=== PATIENT | female | born 1980 | race Caucasian/White ===

== ENCOUNTER 2017-04-28 00:11 | Inpatient (IN) ==
[2017-04-28] MEDS ORDERED: Piperacillin/Tazobactam 4.5 GM in D5% in Water (Mini-Bag+) 100 ML IVPB ONE (00:28)
[2017-04-28] MEDS ORDERED: Vancomycin 750 MG in D5% in Water 250 ML IVPB ONE (00:28)
[2017-04-28] MEDS: 0.9 % Sodium Chloride 1,000 ML IVC SCH ×4 (00:37→22:41)
[2017-04-28 00:40] LABS: Bilirubin,Urine Small (Negative); Blood,Urine Moderate (Negative); Clarity,Urine Turbid (Clear); Color,Urine Yellow (Yellow); Glucose,Urine (UA) Normal (Normal); Ketones,Urine Trace mg/dL (Negative); Leukocyte Esterase,Urine Large (Negative); Nitrite,Urine Negative (Negative); Protein,Urine >=300 mg/dL (Neg-Trace); Specific Gravity,Urine >= 1.030 (1.010-1.025); Urobilinogen,Urine Normal (Normal)
[2017-04-28 00:40] LABS: Hematocrit 31.5 % (35.3-44.9); Hemoglobin 10.2 g/dL (11.5-15.4); Immature Platelets 1.7 % (1.1-6.1); Mean Corpuscular HGB Conc 32.4 g/dL (31.6-35.5); Mean Corpuscular Hemoglobin 24.6 pg (28.0-33.3); Mean Corpuscular Volume 76.1 fL (83.0-100.0); Mean Platelet Volume 8.9 fL (9.4-12.4); Monocytes # 1.1 K/mcL (0.0-1.3); Platelet Count 296 K/mcL (140-400); Red Blood Count 4.14 M/mcL (3.82-4.97); Red Cell Distribution Width 15.9 % (11.5-14.5)
[2017-04-28 00:43] LABS: RBC,Urine Present per hpf (0-3); WBC,Urine TNTC per hpf (0-3)
[2017-04-28 00:44] LABS: Bacteria,Urine Present per hpf (None-Few); Squamous Epithelial Cell,Urine Present per lpf (None-Few)
--- NOTE | 2017-04-28 00:49 | Emergency Department Note ---
Addendum entered and electronically signed by Braden Chaudhry DO 04/28/17 02:25: EKG shows sinus tach, rate 125, ID interval 109, QRS 76, QTC 359, normal axis, no acute ischemic changes Original Note: Disposition Clinical Impression: Pyelonephritis, KVNG (acute kidney injury), Calculus of kidney Sepsis Qualifiers: Sepsis type: sepsis due to unspecified organism Qualified Code(s): A41.9 - Sepsis, unspecified organism Disposition: Admitted As Inpatient Time of Disposition: 01:19 Abdominal Pain HPI - General Chief Complaint: ED Abdominal Pain Stated Complaint: headache,vomiting,fever,rt flank pain Time Seen by Provider: 04/28/17 00:22 Source: patient Mode of arrival: ambulatory Limitations: no limitations Nursing Notes Reviewed: Yes Vital Signs Reviewed: Yes - History of Present Illness HPI Narrative: Patient presents to the ED ambulatory with the chief complaint of flank pain, nausea and headache. Patient reports she was seen here last week and treated for urinary tract infection, but does not remember what it was. States that she was placed on an antibiotic. Patient cannot remember which one. States she had some right flank pain at that time which has since progressed. States the pain is still worse in her right flank and right abdomen but now she has had subjective fever and chills. States her abdomen feels distended. She has been nauseated but not vomiting. States she just feels weak and tired all over. Has been having a fast heart rate as well. States she has not had dysuria but that her urine has been very cloudy. No previous history of nephrolithiasis. Pain Scale: 6 - Related Data Previous Rx's Medication Instructions Recorded Phenazopyridine [Pyridium] 200 mg PO TID PRN #15 tablet 01/19/16 Sulfamethoxazole/Trimeth DS 1 each PO BID #10 tablet 01/19/16 [Bactrim DS] cephALEXin [Cephalexin] 500 mg PO BID #14 tablet 04/04/17 Allergies Allergy/AdvReac Type Severity Reaction Status Date / Time No Known Allergies Allergy Verified 04/04/17 19:33 All systems ED: reviewed and negative except as stated. Constitutional: Reports: fever, chills, weakness Cardiovascular: Denies: chest pain Gastrointestinal: Reports: abdominal pain, nausea. Denies: vomiting Genitourinary: Reports: as per HPI Musculoskeletal: Reports: back pain Neurological: Reports: headache Abdominal Pain PMH - Past Medical History Medical history: Reports: no medical history Female Surgical History: Reports: hysterectomy CONE PICKER history: Reports: no CONE PICKER history Psychiatric history: Reports: no psych history - Social History Smoking status: Current every day smoker Alcohol use: Reports: none Drug use: Reports: none Physical Exam - General Limitations: no limitations General appearance: alert, in no apparent distress, other (Appears ill) - Head Head exam: atraumatic, normocephalic, normal inspection - Eye Eye exam: Present: normal appearance, PERRL, EOMI - ENT ENT exam: mucous membranes dry - Neck Neck exam: Present: normal inspection, full ROM, trachea midline - Chest Chest inspection: Present: normal inspection, symmetric chest wall rise - Respiratory Respiratory exam: Present: normal lung sounds bilaterally - Cardiovascular Cardiovascular exam: Present: regular rate, normal rhythm, normal heart sounds - Abdominal Exam Abdominal exam: Present: soft, tenderness, distention. Absent: guarding, rebound Abdominal tenderness: Present: diffuse - Extremities Exam Extremities exam: Present: normal inspection, full ROM. Absent: tenderness, pedal edema - Back Exam Back exam: Present: full ROM, CVA tenderness (R) - Neurological Exam Neurological exam: Present: alert, oriented X3 - Psychiatric Psychiatric exam: Present: normal affect, normal mood - Skin Skin exam: Present: warm, dry, intact, normal color Course Course Narrative: Patient presenting febrile, tachycardic, with complaint of flank pain and recent urinary tract infection. Suspecting pyelonephritis. Meet sepsis criteria. Labwork ordered. Antibiotics ordered a fluid bolus ordered and patient will be admitted - Reevaluation(s) Reevaluation #1: Patient got back from CT looked of the CT report shows a large stone on the right. Has significant right-sided hydronephrosis and hydroureter. Some perinephric stranding. We will wait on the official CT reading consult urology. - Consultations Consultation #1: Spoke with Dr. Leger, the on-call urologist. He will be in to stent the patient tonight. Patient's last meal was over 12 hours ago, but she has been drinking fluids. We will make her nothing by mouth this time and admit to the hospitalist service until the OR is available. Time: :17 Vital Signs Temperature 101.3 F H 04/28/17 00:13 Pulse Rate 128 04/28/17 00:13 Respiratory Rate 20 04/28/17 00:13 Blood Pressure 99/54 04/28/17 00:13 O2 Sat by Pulse Oximetry 96 04/28/17 00:13 Temperature 97.8 F 04/28/17 03:45 Pulse Rate 96 04/28/17 03:45 Respiratory Rate 17 04/28/17 03:45 Blood Pressure 88/53 04/28/17 03:45 O2 Sat by Pulse Oximetry 95 04/28/17 04:43 Oxygen Delivery Oxygen Delivery Room Air Abdominal Pain - Lab Data Result diagrams: 04/28/17 00:32 04/28/17 00:32 Lab Results 04/28/17 04/28/17 04/28/17 Range/Units 00:28 00:32 00:32 WBC 13.1 H (4.3-11.1) K/mcL RBC 4.14 (3.82-4.97) M/mcL Hgb 10.2 L (11.5-15.4) g/dL Hct 31.5 L (35.3-44.9) % MCV 76.1 L (83.0-100.0) fL MCH 24.6 L (28.0-33.3) pg MCHC 32.4 (31.6-35.5) g/dL RDW 15.9 H (11.5-14.5) % Plt Count 296 (140-400) K/mcL MPV 8.9 L (9.4-12.4) fL Seg Neutrophils % 64.0 % Band Neutrophils % 10.0 H (0-4) % Lymphocytes % 18.0 % Monocytes % 8.0 % Neutrophils # 9.7 H (1.6-8.9) K/mcL Lymphocytes # 2.4 (0.6-4.6) K/mcL Monocytes # 1.1 (0.0-1.3) K/mcL Reactive Lymphocytes Present A (Not Present) Platelet Estimate Normal (Normal) Immature Plt Fraction 1.7 (1.1-6.1) % Anisocytosis 1+ A (Not Present) Sodium 132 L (136-145) mEq/L Potassium 3.7 (3.5-4.5) mEq/L Chloride 96 L (98-109) mEq/L Carbon Dioxide 25 (19-29) mEq/L BUN 9 (7-20) mg/dL Creatinine 1.40 H (0.57-1.11) mg/dL Est GFR ( Amer) 52 L (> 60) Est GFR (Non-Af Amer) 43 L (> 60) BUN/Creatinine Ratio 6 (6-26) Glucose 121 H (70-99) mg/dL Calculated Osmolality 274 L (280-300) Lactic Acid (0.5-2.2) mmol/L Calcium 8.4 L (8.6-10.8) mg/dL Total Bilirubin 0.6 (0.2-1.2) mg/dL Direct Bilirubin 0.4 (0.0-0.5) mg/dL Indirect Bilirubin 0.2 (0.0-1.2) mg/dL AST 12 (5-34) Units/L ALT 9 (0-55) Units/L Alkaline Phosphatase 145 H (38-126) Units/L Troponin I (0-0.03) ng/mL Serum Total Protein 6.3 (6.0-8.3) g/dL Albumin 2.5 L (3.5-5.0) g/dL Globulin 3.8 H (2.4-3.5) g/dL Albumin/Globulin Ratio 0.7 L (1.1-2.2) Ur Specimen Adequacy See below A Urine Color Yellow (Yellow) Urine Clarity Turbid A (Clear) Urine pH 6.0 (5.0-8.0) pH Units Ur Specific [place] >= 1.030 H (1.010-1.025) Urine Protein >=300 H (Neg-Trace) mg/dL Urine Glucose (UA) Normal (Normal) mg/dL Urine Ketones Trace H (Negative) mg/dL Urine Blood Moderate H (Negative) Urine Nitrite Negative (Negative) Urine Bilirubin Small H (Negative) Urine Urobilinogen Normal (Normal) mg/dL Ur Leukocyte Esterase Large H (Negative) Urine Microscopic RBC Present (0-3) per hpf Urine Microscopic WBC TNTC H (0-3) per hpf Ur Squamous Epith Cells Present (None-Few) per lpf Urine Bacteria Present (None-Few) per hpf Ur Culture Indicated? YES A (NO) 04/28/17 04/28/17 Range/Units 00:32 00:32 WBC (4.3-11.1) K/mcL RBC (3.82-4.97) M/mcL Hgb (11.5-15.4) g/dL Hct (35.3-44.9) % MCV (83.0-100.0) fL MCH (28.0-33.3) pg MCHC (31.6-35.5) g/dL RDW (11.5-14.5) % Plt Count (140-400) K/mcL MPV (9.4-12.4) fL Seg Neutrophils % % Band Neutrophils % (0-4) % Lymphocytes % % Monocytes % % Neutrophils # (1.6-8.9) K/mcL Lymphocytes # (0.6-4.6) K/mcL Monocytes # (0.0-1.3) K/mcL Reactive Lymphocytes (Not Present) Platelet Estimate (Normal) Immature Plt Fraction (1.1-6.1) % Anisocytosis (Not Present) Sodium (136-145) mEq/L Potassium (3.5-4.5) mEq/L Chloride (98-109) mEq/L Carbon Dioxide (19-29) mEq/L BUN (7-20) mg/dL Creatinine (0.57-1.11) mg/dL Est GFR ( Amer) (> 60) Est GFR (Non-Af Amer) (> 60) BUN/Creatinine Ratio (6-26) Glucose (70-99) mg/dL Calculated Osmolality (280-300) Lactic Acid 1.5 (0.5-2.2) mmol/L Calcium (8.6-10.8) mg/dL Total Bilirubin (0.2-1.2) mg/dL Direct Bilirubin (0.0-0.5) mg/dL Indirect Bilirubin (0.0-1.2) mg/dL AST (5-34) Units/L ALT (0-55) Units/L Alkaline Phosphatase (38-126) Units/L Troponin I 0.00 (0-0.03) ng/mL Serum Total Protein (6.0-8.3) g/dL Albumin (3.5-5.0) g/dL Globulin (2.4-3.5) g/dL Albumin/Globulin Ratio (1.1-2.2) Ur Specimen Adequacy Urine Color (Yellow) Urine Clarity (Clear) Urine pH (5.0-8.0) pH Units Ur Specific [place] (1.010-1.025) Urine Protein (Neg-Trace) mg/dL Urine Glucose (UA) (Normal) mg/dL Urine Ketones (Negative) mg/dL Urine Blood (Negative) Urine Nitrite (Negative) Urine Bilirubin (Negative) Urine Urobilinogen (Normal) mg/dL Ur Leukocyte Esterase (Negative) Urine Microscopic RBC (0-3) per hpf Urine Microscopic WBC (0-3) per hpf Ur Squamous Epith Cells (None-Few) per lpf Urine Bacteria (None-Few) per hpf Ur Culture Indicated? (NO) Attestation Statement - Attestation Attestation: I examined this patient and my medical decision-making was reviewed with the Resident Physician. I agree with the documented findings, disposition and treatment plan as described except to the extent set forth below. Obstructive uropathy with infected stone. Patient does have vital signs concerning for sepsis. Cultures, broad-spectrum antibiotics. Plan to admit to the operating room for stone retrieval. Discussed case with urologist hospitalist team. I spent greater than 35 minutes of critical care time assessing this acutely ill patient suffering from septic shock. This is excluding billable procedures.
[2017-04-28 00:55] LABS: Albumin 2.5 g/dL (3.5-5.0); Albumin/Globulin Ratio 0.7 (1.1-2.2); Bilirubin,Direct 0.4 mg/dL (0.0-0.5); Bilirubin,Indirect 0.2 mg/dL (0.0-1.2); Bilirubin,Total 0.6 mg/dL (0.2-1.2); Calcium 8.4 mg/dL (8.6-10.8); Globulin 3.8 g/dL (2.4-3.5); Potassium 3.7 mEq/L (3.5-4.5); Total Protein 6.3 g/dL (6.0-8.3)
[2017-04-28 01:12] LABS: Lymphocytes # 2.4 K/mcL (0.6-4.6); Neutrophils # 9.7 K/mcL (1.6-8.9); Reactive Lymphocytes Present (Not Present)
[2017-04-28 01:13] LABS: Platelet Estimate Normal (Normal)
[2017-04-28 01:14] LABS: Anisocytosis 1+ (Not Present)
[2017-04-28] MEDS ORDERED: D5% in Water 250 ML ONE (01:14)
--- NOTE | 2017-04-28 01:35 | Anesthesia Evaluation PreOp ---
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 History: Seizures (one seizure in 2009, not being medically treated) Other Medical History: Denies Any Significant HX Anesthesia History: No Prior Anesthetic Complications, Past Anesthesia ( hysterectomy) Alcohol Use: none Drug use: opiates (quit 04/23/2017, started subutex), prescription drug abuse Medications and Allergies Phenazopyridine [Pyridium] 200 mg PO TID PRN #15 tablet 01/19/16 [Rx] Sulfamethoxazole/Trimeth DS [Bactrim DS] 1 each PO BID #10 tablet 01/19/16 [Rx] cephALEXin [Cephalexin] 500 mg PO BID #14 tablet 04/04/17 [Rx] 3 Allergy/AdvReac Type Severity Reaction Status Date / Time No Known Allergies Allergy Verified 04/04/17 19:33 - Meds/Allergy Pre-op Review Medications Reviewed: Yes Allergies Reviewed: Yes Beta Blockers on Current Med List: No Anesthesia Results - Labs 04/28/17 00:32 04/28/17 00:32 Anesthesia Exam Vital Signs/O2 Sat, Most Current Temp Pulse Resp BP Pulse Ox 101.3 F H 107 16 103/52 96 04/28/17 00:13 04/28/17 01:33 04/28/17 01:33 04/28/17 01:33 04/28/17 01:33 Height: 5'/1.52 m Weight: 105 lbs/47.6 kg NPO (# of Hours): 8 Pain Scale: 6 (right flank) Pain Scale Used: Numeric (1 - 10) - HEENT Pupil (Motor): EOMI Mallampati: II Teeth: Edentulous Oral Opening: Greater than 3 - HI RANGER OPERATOR LOC: Oriented HI RANGER OPERATOR Motor: Normal RUE, Normal LUE, Normal RLE, Normal LLE, Normal Face HI RANGER OPERATOR Sensory: Normal: RUE, LUE, RLE, LLE, Face - Cardiac Rhythm: Regular Murmur: None - Pulmonary Breath Sounds: bilateral Clear Respiratory Effort: Symmetrical Anesthesia Assess/Plan ASA Score: 3 Modified Estela Scale for Level of Consciousness: Cooperative, oriented, and tranquil Anesthetic Plan: General Monitoring Plan: Standard Monitors Recovery Plan: PACU
--- NOTE | 2017-04-28 01:59 | Urology - Consult Note ---
Date of Encounter: 04/28/17 Time of Encounter: 01:56 - Assessment and Plan (1) Calculus of distal right ureter Current Visit: Yes Status: Acute Assessment and plan: 37-year-old woman with a distal right ureteral stone, urinary tract infection with sepsis is being admitted to the hospital. I recommend proceeding with a cystoscopy and right ureteral stent placement. She was informed of the risks of the surgery which include but are not limited to bleeding, infection, injury to structures, need for further procedures, stent irritation, and risk of anesthesia. She is willing to proceed. She has already spread received antibiotic. (2) Sepsis Current Visit: Yes Status: Acute Assessment and plan: She has a urinary tract infection with sepsis. The hospitalist service will admit her to their service for further care. I will proceed with stent placement tonight. Qualifiers: Sepsis type: sepsis due to unspecified organism Qualified Code(s): A41.9 - Sepsis, unspecified organism Urology CN:[facility] Consult date: 04/28/17 Reason for consult Urology: Other (UTI, right ureteral stone) History of present illness: 37-year-old woman presents with a one-week history of right flank pain. She was brought to the emergency department she had severe pain, headache, nausea, and vomiting. She was febrile. The pain was sharp and located in the right flank. It radiated to the right lower quadrant. She denies a history of kidney stones. She had a CT scan which showed a 10 mm right distal ureteral stone. She was febrile, tachycardic, and hypotensive. She was given IV antibiotic and fluid boluses. Her blood pressure did improve. Past Med Surg Social Fam HX - Past Medical History Medical history: no medical history Psychiatric history: no psych history - Social History Smoking Status: Current every day smoker Smokeless Tobacco Status: No Alcohol use: none Drug use: none Medications and Allergies Phenazopyridine [Pyridium] 200 mg PO TID PRN #15 tablet 01/19/16 [Rx] Sulfamethoxazole/Trimeth DS [Bactrim DS] 1 each PO BID #10 tablet 01/19/16 [Rx] cephALEXin [Cephalexin] 500 mg PO BID #14 tablet 04/04/17 [Rx] 3 Allergy/AdvReac Type Severity Reaction Status Date / Time No Known Allergies Allergy Verified 04/04/17 19:33 Review of Systems - Constitutional chills, fever(s) - EENT Nose, mouth and throat: no dizziness - Cardiovascular no chest pain - Respiratory no dyspnea - Gastrointestinal nausea, vomiting - Genitourinary Genitourinary: flank pain, no hematuria - Musculoskeletal no back pain - Integumentary no erythema, no rash - Neurological no weakness - Psychiatric no suicidal ideation - Hematologic/Lymphatic no easy bleeding - Allergic/Immunologic no wheezing Exam Initial Vital Signs Temp Pulse Resp BP Pulse Ox 101.3 F H 128 20 99/54 96 04/28/17 00:13 04/28/17 00:13 04/28/17 00:13 04/28/17 00:13 04/28/17 00:13 - General physical appearance Present: well developed, well nourished, no distress - Eyes Absent: icteric - ENT Present: normal nares - Neck Present: trachea midline - Respiratory Present: normal respiratory effort - Cardiovascular Cardiovascular exam IM: RRR - Abdomen Abdomen: Present: soft Urology Results - Labs 04/28/17 00:32 04/28/17 00:32 Abnormal lab results WBC 13.1 K/mcL (4.3-11.1) H 04/28/17 00:32 Hgb 10.2 g/dL (11.5-15.4) L 04/28/17 00:32 Hct 31.5 % (35.3-44.9) L 04/28/17 00:32 MCV 76.1 fL (83.0-100.0) L 04/28/17 00:32 MCH 24.6 pg (28.0-33.3) L 04/28/17 00:32 RDW 15.9 % (11.5-14.5) H 04/28/17 00:32 MPV 8.9 fL (9.4-12.4) L 04/28/17 00:32 Band Neutrophils % 10.0 % (0-4) H 04/28/17 00:32 Neutrophils # 9.7 K/mcL (1.6-8.9) H 04/28/17 00:32 Reactive Lymphocytes Present (Not Present) A 04/28/17 00:32 Anisocytosis 1+ (Not Present) A 04/28/17 00:32 Sodium 132 mEq/L (136-145) L 04/28/17 00:32 Chloride 96 mEq/L (98-109) L 04/28/17 00:32 Creatinine 1.40 mg/dL (0.57-1.11) H 04/28/17 00:32 Est GFR ( Amer) 52 (> 60) L 04/28/17 00:32 Est GFR (Non-Af Amer) 43 (> 60) L 04/28/17 00:32 Glucose 121 mg/dL (70-99) H 04/28/17 00:32 Calculated Osmolality 274 (280-300) L 04/28/17 00:32 Calcium 8.4 mg/dL (8.6-10.8) L 04/28/17 00:32 Alkaline Phosphatase 145 Units/L (38-126) H 04/28/17 00:32 Albumin 2.5 g/dL (3.5-5.0) L 04/28/17 00:32 Globulin 3.8 g/dL (2.4-3.5) H 04/28/17 00:32 Albumin/Globulin Ratio 0.7 (1.1-2.2) L 04/28/17 00:32 Ur Specimen Adequacy See below A 04/28/17 00:28 Urine Clarity Turbid (Clear) A 04/28/17 00:28 Ur Specific [place] >= 1.030 (1.010-1.025) H 04/28/17 00:28 Urine Protein >=300 mg/dL (Neg-Trace) H 04/28/17 00:28 Urine Ketones Trace mg/dL (Negative) H 04/28/17 00:28 Urine Blood Moderate (Negative) H 04/28/17 00:28 Urine Bilirubin Small (Negative) H 04/28/17 00:28 Ur Leukocyte Esterase Large (Negative) H 04/28/17 00:28 Urine Microscopic WBC TNTC per hpf (0-3) H 04/28/17 00:28 Ur Culture Indicated? YES (NO) A 04/28/17 00:28 Diabetes panel 04/28/17 Range/Units 00:32 Sodium 132 L (136-145) mEq/L Potassium 3.7 (3.5-4.5) mEq/L Chloride 96 L (98-109) mEq/L Carbon Dioxide 25 (19-29) mEq/L BUN 9 (7-20) mg/dL Creatinine 1.40 H (0.57-1.11) mg/dL Glucose 121 H (70-99) mg/dL Calcium 8.4 L (8.6-10.8) mg/dL AST 12 (5-34) Units/L ALT 9 (0-55) Units/L Alkaline Phosphatase 145 H (38-126) Units/L Albumin 2.5 L (3.5-5.0) g/dL Calcium panel 04/28/17 Range/Units 00:32 Calcium 8.4 L (8.6-10.8) mg/dL Albumin 2.5 L (3.5-5.0) g/dL Pituitary panel 04/28/17 Range/Units 00:32 Sodium 132 L (136-145) mEq/L Potassium 3.7 (3.5-4.5) mEq/L Chloride 96 L (98-109) mEq/L Carbon Dioxide 25 (19-29) mEq/L BUN 9 (7-20) mg/dL Creatinine 1.40 H (0.57-1.11) mg/dL Glucose 121 H (70-99) mg/dL Calcium 8.4 L (8.6-10.8) mg/dL Adrenal panel 04/28/17 Range/Units 00:32 Sodium 132 L (136-145) mEq/L Potassium 3.7 (3.5-4.5) mEq/L Chloride 96 L (98-109) mEq/L Carbon Dioxide 25 (19-29) mEq/L BUN 9 (7-20) mg/dL Creatinine 1.40 H (0.57-1.11) mg/dL Glucose 121 H (70-99) mg/dL Calcium 8.4 L (8.6-10.8) mg/dL Total Bilirubin 0.6 (0.2-1.2) mg/dL AST 12 (5-34) Units/L ALT 9 (0-55) Units/L Alkaline Phosphatase 145 H (38-126) Units/L Albumin 2.5 L (3.5-5.0) g/dL All other labs normal. - Imaging CT scan - abdomen: report reviewed, image reviewed CT scan - pelvis: report reviewed, image reviewed Consult Discharge Plan - Plan Referrals: NONE,PCP [Primary Care Provider] -
[2017-04-28] MEDS ORDERED: *HR* Rocuronium Bromide 50 MG/5 ML VIAL ONE (02:00)
[2017-04-28] MEDS ORDERED: Lidocaine -MPF 2% 2 ML VIAL ONE (02:00)
[2017-04-28] MEDS ORDERED: *HR* Midazolam HCl 2 MG/2 ML VIAL ONE (02:00)
[2017-04-28] MEDS ORDERED: *HR* FentaNYL (PF) 100 MCG/2 ML VIAL ONE (02:00)
[2017-04-28] MEDS ORDERED: *HR* Succinylcholine 200 MG/10 ML VIAL IVP ONE (02:00)
[2017-04-28] MEDS ORDERED: Dexamethasone 4 MG/ML VIAL ONE (02:00)
[2017-04-28] MEDS ORDERED: *HR* Propofol 200 MG/20 ML VIAL IVP ONE (02:00)
[2017-04-28] MEDS ORDERED: Ondansetron 4 MG/2 ML VIAL ONE (02:00)
[2017-04-28] MEDS ORDERED: Ondansetron 4 MG/2 ML VIAL IVP PRN ×2 (02:13→04:08)
[2017-04-28] MEDS ORDERED: Naloxone 0.4 MG/ML INJ IVP PRN ×2 (02:13→04:08)
[2017-04-28] MEDS ORDERED: *HR* Morphine 2 MG/ML SYRINGE IVP PRN ×3 (02:13→04:08)
[2017-04-28] MEDS ORDERED: Acetaminophen 325 MG TABLET PO PRN ×2 (02:13→04:08)
--- NOTE | 2017-04-28 02:14 | Operative Note ---
Date of procedure: 04/28/17 Pre-op diagnosis: Right ureteral stone, sepsis Post-op diagnosis: same Procedure: Cystoscopy, right retrograde pyelogram, right ureteral stent placement. Implants: 6 [place] by 24 cm double-J stent. Complications: None. Anesthesia: ISELA Surgeon: Geoffrey Leger Estimated blood loss (cc): 1 Specimen: right renal aspirate for culture. Condition: stable Disposition: PACU Procedure in Detail: Indications: Barbara is a 37-year-old woman who has a history of nephrolithiasis. She had a CT which showed a right distal ureteral stone. She also has a urinary tract infection and was febrile. She had an episode of hypotension. She elected to undergo a cystoscopy and right ureteral stent placement. She was aware of the risks of the procedure including but not limited to bleeding, infection, injury to other structures, need for further procedures, stent irritation, need for nephrostomy tube, need for open repair, risks otherwise unforeseen, and the risk of anesthesia. She is willing to proceed. Procedure in Detail: After informed consent was obtained the patient was brought back to the operating room and placed in supine position. A time out was performed. General anesthesia was administered and an endotracheal tube was placed. She was then placed in the lithotomy position. She was prepped and draped in the usual sterile fashion. Cystoscopy was performed. The anterior urethra was normal. There was no evidence of bladder tumors. The ureteral orifices were in the normal orthotopic position. There was no duplication of the ureteral orifices. The Zip wire was placed in the right ureteral orifice. The wire was brought into the proximal ureter. It did not advance all the way into the kidney. The open-ended catheter was then placed. The wire was removed. A retrograde pyelogram was performed. There was evidence of hydronephrosis and a tortuous ureter. The zip wire was then placed into the kidney. The open-ended catheter was placed into the kidney and the wire was exchanged for a sensor wire. I had difficulty getting the stent over the sensor wire past the stone. The wire was changed out for the zip wire again. This time, the 6 [place] by 24cm JJ stent was then placed. A good curl was seen within the kidney and the bladder. The dangle strings were removed. A [place] catheter was inserted. The patient was then awakened from general anesthesia and brought to recovery room in good condition. All sponge, needle, and instrument counts were correct.
[2017-04-28] MEDS ORDERED: 0.9 % Sodium Chloride 1,000 ML IVC SCH ×2 (02:15→04:08)
[2017-04-28] MEDS ORDERED: Albuterol 2.5 MG/3 ML NEBULIZER ONE (02:16)
[2017-04-28] MEDS ORDERED: Ertapenem 1,000 MG in 0.9 % Sodium Chloride Mini Bag 100 ML IVPB SCH ×2 (02:17→09:00)
[2017-04-28] MEDS ORDERED: Albuterol 2.5 MG/3 ML NEBULIZER IH ONE (02:18)
--- NOTE | 2017-04-28 02:20 | Internal Med History&Physical ---
Date of Encounter: 04/28/17 Time of Encounter: 02:18 Assessment and Plan (1) Sepsis Current visit: Yes Status: Acute Severe sepsis secondary to right pyelonephritis/obstructing stone Urgent urology consult, the patient is going for urgent stent placement shortly Start ertapenem, May de-escalate antibiotics once the final report of the culture is available Blood cultures and urine culture Aggressive hydration with IV fluids Omeprazole for GI prophylaxis and sequential compression devices for DVT prophylaxis. The patient will be admitted as inpatient, expected to stay more than 2 midnights. Full code. Time spent on this admission 40 minutes high risk due to severe sepsis Qualifiers: Sepsis type: sepsis due to unspecified organism Qualified Code(s): A41.9 - Sepsis, unspecified organism (2) Pyelonephritis Current visit: Yes Status: Acute (3) KVNG (acute kidney injury) Current visit: Yes Status: Acute Secondary to sepsis Continue IV fluids (4) Calculus of distal right ureter Current visit: Yes Status: Acute (5) Opiate use Current visit: Yes Status: Acute Confirm dose of Subutex (6) Tobacco abuse Current visit: Yes Status: Acute Smoking cessation counseling, nicotine patch Internal Medicine - H&P: HPI Chief complaint: Fever Admitted From: Emergency Dept History of present illness: Ms. Torres is a 37 year old female with a past history of remote appeared abuse, who was recently evaluated at the beginning of this month for a possible UTI which she grew Klebsiella, she was sent on Keflex but came to the hospital again complaining of severe right flank tenderness that started last . Still complaining of dysuria, running fever of 101.3 white blood cell count is 13.1 with 10% of bands. Sodium is 132 her creatinine has increased from her baseline of 0.78 up to 1.4. Appears dehydrated. UA shows too numerous to count white blood cells in the CT scan of the abdomen shows a right 10 mm obstructing stone causing severe hydroureter and right perinephric stranding concerning for possible pyelonephritis. Urology has urgently been consulted. The patient became hypotensive in the 90s, blood pressure is maintaining at the moment. She mentions that she has been having nausea vomiting, constant abdominal pain, dysuria and fevers. Past Med Surg Social Fam HX - Past Medical History Medical history: other (Remote history of IV drug abuse, UTI with Klebsiella resistant only to ampicillin and Escherichia coli in the past resistant to ampicillin and sulbactam and Bactrim, tobacco use, opiate abuse currently on Subutex) Psychiatric history: no psych history - Past Surgical History Surgical History: hysterectomy - Social History Smoking Status: Current every day smoker Packs per day: One pack per day Smokeless Tobacco Status: No Alcohol use: none Drug use: IV Drug Use (Heroine in the past) - Additional Family History Additional family history: Denies any family history Internal Medicine - H&P: Meds Phenazopyridine [Pyridium] 200 mg PO TID PRN #15 tablet 01/19/16 [Rx] Sulfamethoxazole/Trimeth DS [Bactrim DS] 1 each PO BID #10 tablet 01/19/16 [Rx] cephALEXin [Cephalexin] 500 mg PO BID #14 tablet 04/04/17 [Rx] 3 Allergy/AdvReac Type Severity Reaction Status Date / Time No Known Allergies Allergy Verified 04/04/17 19:33 All Systems PM: A 10-system review of systems was performed and is negative for pertinent findings except as documented above in the HPI. Review of systems: Abdominal pain, fever, other systems out of the 10 reviewed were negative - Constitutional Vitals: Temp Pulse Resp BP Pulse Ox 101.3 F H 108 16 101/55 97 04/28/17 00:13 04/28/17 02:01 04/28/17 02:01 04/28/17 02:01 04/28/17 02:01 General appearance: Present: A&O X 3 (Dehydrated, dry mucosa) - Head Head exam: Present: atraumatic, normocephalic - Eye Eye exam: Present: PERRL, conjuntiva pink, sclera anicteric Pupils: Present: PERRL - Neck Neck exam general surgery: Present: supple, trachea midline. Absent: lymphadenopathy - Respiratory Respiratory exam: Present: decreased breath sounds, CTAB. Absent: accessory muscle use, rales, rhonchi, wheezes - Cardiovascular Cardiovascular exam: Present: RRR, +S1, +S2, tachycardia. Absent: diastolic murmur, gallop, rubs, systolic murmur - GI/Abdominal GI/Abdominal exam: Present: distended, normal bowel sounds, soft, tenderness ( Right hemiabdomen tenderness), no peritoneal signs - Extremities Exam Extremities exam: Present: warm, radial pulses palpable and symmetrical. Absent : calf tenderness, cyanotic, pedal edema - Neurological Exam Neurological exam: Present: CN II-XII intact, oriented X3, no focal deficits. Absent: pronater drift, facial droop, speech deficit - Skin Skin exam: Present: dry, intact Internal Med - H&P Results - Labs CBC & Chem 7: 04/28/17 00:32 04/28/17 00:32
--- NOTE | 2017-04-28 03:44 | Anesthesia Evaluation Post Op ---
Date of Encounter: 04/28/17 Time of Encounter: 03:43 - Vital Signs Vital Signs: Vital Signs/O2 Sat, Most Current Temp Pulse Resp BP Pulse Ox 98.4 F 93 15 90/53 94 04/28/17 03:15 04/28/17 03:35 04/28/17 03:35 04/28/17 03:35 04/28/17 03:35 - Lungs Lungs: Clear Ascult./Percussion - Airway Airway: Non-obstructed - Cardiovascular Regular Rate - Mental Status Mental Status: Asleep with brisk response to light stimulation - Pain Pain Scale: 5 Pain Scale used: Numeric (1 - 10) - Nausea Vomiting Nausea Vomiting: Not Present - Hydration Hydration: NPO, Corado catheter - Discharge PostOp Status: Transfer Patient to floor
[2017-04-28] MEDS ORDERED: *HR* HYDROcodone/Acet 5/325 mg TABLET PO PRN (04:08)
[2017-04-28 05:24] LABS: Basophils % 0.2 %; Lymphocytes # 0.7 K/mcL (0.6-4.6); Lymphocytes % 6.7 %; Mean Corpuscular HGB Conc 32.1 g/dL (31.6-35.5); Mean Corpuscular Hemoglobin 24.2 pg (28.0-33.3); Mean Corpuscular Volume 75.5 fL (83.0-100.0); Mean Platelet Volume 9.2 fL (9.4-12.4); Monocytes % 8.7 %; Neutrophils # 9.3 K/mcL (1.6-8.9); Platelet Count 187 K/mcL (140-400); Red Blood Count 3.18 M/mcL (3.82-4.97); Red Cell Distribution Width 15.9 % (11.5-14.5); Segmented Neutrophils % 83.4 %
[2017-04-28 05:44] LABS: BUN/Creatinine Ratio 8 (6-26); Blood Urea Nitrogen 9 mg/dL (7-20); Calcium 7.6 mg/dL (8.6-10.8); Carbon Dioxide 23 mEq/L (19-29); Chloride 102 mEq/L (98-109); Glucose 139 mg/dL (70-99); Osmolality,Calculated 277 (280-300); Potassium 4.1 mEq/L (3.5-4.5); Sodium 133 mEq/L (136-145); eGFR For African Americans > 60 (> 60); eGFR For Non-African Americans 51 (> 60)
[2017-04-28 05:59] LABS: Hemoglobin 7.7 g/dL (11.5-15.4)
[2017-04-28 06:10] LABS: Platelet Estimate Normal (Normal)
[2017-04-28 06:11] LABS: Anisocytosis 1+ (Not Present); Poikilocytosis 1+ (Not Present)
--- NOTE | 2017-04-28 07:06 | Urology Progress Note ---
Date of Encounter: 04/28/17 Time of Encounter: 07:05 - Assessment and Plan (1) Calculus of distal right ureter Current Visit: Yes Status: Acute Assessment and plan: Status post right ureteral stent placement. She is doing well. Will treat stone as an outpatient. Appreciate hospitalist support. (2) Sepsis Current Visit: Yes Status: Acute Assessment and plan: Continue ertapenem for antibiotic coverage. Await urine culture results. Qualifiers: Sepsis type: sepsis due to unspecified organism Qualified Code(s): A41.9 - Sepsis, unspecified organism Progress Note Narrative: Status post cystoscopy and right ureteral stent placement. She is doing well today. She says her pain is well-controlled. No fever so far after surgery. Objective Initial Vital Signs Temp Pulse Resp BP Pulse Ox 101.3 F H 128 20 99/54 96 04/28/17 00:13 04/28/17 00:13 04/28/17 00:13 04/28/17 00:13 04/28/17 00:13 - General physical appearance Present: well developed, well nourished, no distress - Respiratory Present: normal respiratory effort - Abdomen Present: soft - Genitourinary Urine Appearance: Present: Clear - Labs 04/28/17 05:11 04/28/17 05:11 Diabetes panel 04/28/17 Range/Units 05:11 Sodium 133 L (136-145) mEq/L Potassium 4.1 (3.5-4.5) mEq/L Chloride 102 (98-109) mEq/L Carbon Dioxide 23 (19-29) mEq/L BUN 9 (7-20) mg/dL Creatinine 1.19 H (0.57-1.11) mg/dL Glucose 139 H (70-99) mg/dL Calcium 7.6 L (8.6-10.8) mg/dL Calcium panel 04/28/17 Range/Units 05:11 Calcium 7.6 L (8.6-10.8) mg/dL Pituitary panel 04/28/17 Range/Units 05:11 Sodium 133 L (136-145) mEq/L Potassium 4.1 (3.5-4.5) mEq/L Chloride 102 (98-109) mEq/L Carbon Dioxide 23 (19-29) mEq/L BUN 9 (7-20) mg/dL Creatinine 1.19 H (0.57-1.11) mg/dL Glucose 139 H (70-99) mg/dL Calcium 7.6 L (8.6-10.8) mg/dL Adrenal panel 04/28/17 Range/Units 05:11 Sodium 133 L (136-145) mEq/L Potassium 4.1 (3.5-4.5) mEq/L Chloride 102 (98-109) mEq/L Carbon Dioxide 23 (19-29) mEq/L BUN 9 (7-20) mg/dL Creatinine 1.19 H (0.57-1.11) mg/dL Glucose 139 H (70-99) mg/dL Calcium 7.6 L (8.6-10.8) mg/dL - VTE Documentation of Mechanical Device: Intermittent pneumatic compression device Consult Discharge Plan - Plan Referrals: NONE,PCP [Primary Care Provider] -
--- NOTE | 2017-04-28 08:05 | Electrocardiograph Report ---
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
--- NOTE | 2017-04-28 11:22 | Event Note ---
Date of Encounter: 04/28/17 Time of Encounter: 10:20 Patient lying in bed. Somnolent from anesthesia. Denies any new complaints at this time. Patient's is at bedside. Says that the patient has been having episodes of vomiting over the past week. Continue supportive care and antiemetics as needed. If patient continues to have nausea and vomiting, we will evaluate for SBO. Change antibiotic to levofloxacin. Patient's urine culture from March positive for Klebsiella that is sensitive to levofloxacin with MOLINA of less than 0.12. Will follow repeat urine culture results sent at admission.
[2017-04-29] MEDS: 0.9 % Sodium Chloride 1,000 ML IVC SCH ×3 (05:33→19:55)
[2017-04-29 07:15] LABS: Basophils % 0.1 %; Hematocrit 24.9 % (35.3-44.9); Immature Granulocytes % 1.7 % (0-4); Lymphocytes # 1.1 K/mcL (0.6-4.6); Lymphocytes % 8.1 %; Mean Corpuscular HGB Conc 32.1 g/dL (31.6-35.5); Mean Corpuscular Hemoglobin 24.4 pg (28.0-33.3); Mean Corpuscular Volume 75.9 fL (83.0-100.0); Mean Platelet Volume 9.8 fL (9.4-12.4); Monocytes # 0.9 K/mcL (0.0-1.3); Monocytes % 6.5 %; Neutrophils # 11.2 K/mcL (1.6-8.9); Platelet Count 263 K/mcL (140-400); Red Blood Count 3.28 M/mcL (3.82-4.97); Red Cell Distribution Width 16.6 % (11.5-14.5); Segmented Neutrophils % 83.6 %
--- NOTE | 2017-04-29 07:48 | Urology Progress Note ---
Date of Encounter: 04/29/17 Time of Encounter: 07:46 - Assessment and Plan (1) Calculus of distal right ureter Current Visit: Yes Status: Acute Assessment and plan: I will arrange for definitive right ureteroscopic stone extraction with laser lithotripsy as an outpatient. (2) Sepsis Current Visit: Yes Status: Acute Assessment and plan: Await urine cultures. Continue IV antibiotic. Appreciate hospital support. Qualifiers: Sepsis type: sepsis due to unspecified organism Qualified Code(s): A41.9 - Sepsis, unspecified organism Progress Note Narrative: Postoperative day #1 status post cystoscopy and right ureteral stent placement. Gram-negative rods are growing on her culture. She has been doing well. She has been voiding well. Objective Initial Vital Signs Temp Pulse Resp BP Pulse Ox 101.3 F H 128 20 99/54 96 04/28/17 00:13 04/28/17 00:13 04/28/17 00:13 04/28/17 00:13 04/28/17 00:13 - General physical appearance Present: well developed, well nourished, no distress - Respiratory Present: normal respiratory effort - Abdomen Present: soft - Labs 04/29/17 05:38 04/28/17 05:11 - VTE Documentation of Mechanical Device: Intermittent pneumatic compression device Consult Discharge Plan - Plan Referrals: NONE,PCP [Primary Care Provider] -
[2017-04-29 08:22] LABS: BUN/Creatinine Ratio 17 (6-26); Blood Urea Nitrogen 13 mg/dL (7-20); Calcium 8.1 mg/dL (8.6-10.8); Carbon Dioxide 24 mEq/L (19-29); Chloride 110 mEq/L (98-109); Glucose 141 mg/dL (70-99); Osmolality,Calculated 292 (280-300); Potassium 4.1 mEq/L (3.5-4.5); Sodium 140 mEq/L (136-145); eGFR For African Americans > 60 (> 60); eGFR For Non-African Americans > 60 (> 60)
[2017-04-29] MEDS: Levofloxacin 500 MG/100 ML 500 MG/100 ML BAG IVPB SCH (09:24)
[2017-04-29 09:52] LABS: BUN/Creatinine Ratio 17 (6-26); Blood Urea Nitrogen 13 mg/dL (7-20); Carbon Dioxide 21 mEq/L (19-29); Chloride 111 mEq/L (98-109); Glucose 142 mg/dL (70-99); Magnesium 1.6 mg/dL (1.6-2.6); Osmolality,Calculated 293 (280-300); Phosphorous 2.6 mg/dL (2.3-4.7); Potassium 4.1 mEq/L (3.5-4.5); Sodium 140 mEq/L (136-145); eGFR For African Americans > 60 (> 60); eGFR For Non-African Americans > 60 (> 60)
[2017-04-29 10:34] LABS: % Iron Saturation 17 % (15-50); Iron 28 mcg/dL (50-170); Transferrin 118 mg/dL (180-382)
--- NOTE | 2017-04-29 16:25 | Internal Med Progress Note ---
Date of Encounter: 04/29/17 Time of Encounter: 15:00 - Assessment and plan (1) Pyelonephritis Current Visit: Yes Status: Acute (2) KVNG (acute kidney injury) Current Visit: Yes Status: Acute Assessment and plan: resolved (3) Calculus of distal right ureter Current Visit: Yes Status: Acute Assessment and plan: Postoperative day #1 status post cystoscopy and right ureteral stent placement. Gram-negative rods , Urology will arrange for definitive right ureteroscopic stone extraction with laser lithotripsy as an outpatient. (4) Tobacco abuse Current Visit: Yes Status: Acute Assessment and plan: Nicotine patch (5) Right upper quadrant abdominal pain Current Visit: Yes Status: Acute Assessment and plan: Will check gallbladder ultrasound, add ceftriaxone, close monitoring patient condition (6) Iron deficiency anemia Current Visit: Yes Status: Acute Assessment and plan: will add iron once tolerate oral intake - Time Spent With Patient 25 - 35 minutes - Subjective Interval history: Patient is complaining of right upper quadrant pain nausea. Patient states her being get worse with eating. Patient denies any fever or chills. Patient denies any chest pain or shortness of breath - Constitutional Vitals: Temp Pulse Resp BP Pulse Ox 98.0 F 83 14 104/72 94 04/29/17 10:22 04/29/17 10:22 04/29/17 10:22 04/29/17 10:22 04/29/17 10:22 General appearance: Present: A&O X 3 (Dehydrated, dry mucosa) - Head Head exam: Present: atraumatic, normocephalic - Neck Neck exam general surgery: Present: supple, trachea midline. Absent: lymphadenopathy - Respiratory Respiratory exam: Present: CTAB. Absent: accessory muscle use, rales, rhonchi, wheezes - Cardiovascular Cardiovascular exam: Present: RRR, +S1, +S2. Absent: diastolic murmur, gallop, rubs, systolic murmur - GI/Abdominal GI/Abdominal exam: Present: distended, normal bowel sounds, soft, tenderness ( Diffuse abdominal tenderness more in right lower quadrant), no peritoneal signs - Extremities Exam Extremities exam: Present: warm, radial pulses palpable and symmetrical. Absent : calf tenderness, cyanotic, pedal edema Internal Medicine: Result - Labs CBC & Chem 7: 04/29/17 05:38 04/29/17 09:14 Labs: Short CBC 04/29/17 Range/Units 05:38 WBC 13.4 H (4.3-11.1) K/mcL Hgb 8.0 L (11.5-15.4) g/dL Hct 24.9 L (35.3-44.9) % Plt Count 263 (140-400) K/mcL Neutrophils # 11.2 H (1.6-8.9) K/mcL BMP 04/29/17 04/29/17 05:38 09:14 Sodium 140 D 140 Potassium 4.1 4.1 Chloride 110 H 111 H Carbon Dioxide 24 21 BUN 13 13 Creatinine 0.78 0.78 Glucose 141 H 142 H Calcium 8.1 L 8.0 L - VTE Documentation of Mechanical Device: Intermittent pneumatic compression device Consult Discharge Plan - Plan Referrals: NONE,PCP [Primary Care Provider] -
[2017-04-29 17:48] LABS: Magnesium 1.5 mg/dL (1.6-2.6); Phosphorous 2.2 mg/dL (2.3-4.7)
[2017-04-29] MEDS: Thiamine (B-1) 100 MG TABLET PO SCH (17:49)
[2017-04-29] MEDS: cefTRIAXone 1,000 MG in Water for inj. (sterile) 10 ML IVP SCH (17:49)
[2017-04-29] MEDS ORDERED: Magnesium Sulfate 1 GM in D5% in Water 100 ML IVPB ONE (18:28)
[2017-04-29] MEDS: Nicotine 21 MG PATCH.TD24 TD SCH (18:34)
[2017-04-30 05:22] LABS: Basophils % 0.1 %; Eosinophils % 0.2 %; Hematocrit 27.2 % (35.3-44.9); Hemoglobin 8.3 g/dL (11.5-15.4); Immature Granulocytes % 1.4 % (0-4); Lymphocytes # 1.7 K/mcL (0.6-4.6); Lymphocytes % 18.9 %; Mean Corpuscular HGB Conc 30.5 g/dL (31.6-35.5); Mean Corpuscular Volume 78.6 fL (83.0-100.0); Mean Platelet Volume 9.3 fL (9.4-12.4); Monocytes # 0.6 K/mcL (0.0-1.3); Monocytes % 6.3 %; Neutrophils # 6.7 K/mcL (1.6-8.9); Platelet Count 334 K/mcL (140-400); Red Blood Count 3.46 M/mcL (3.82-4.97); Segmented Neutrophils % 73.1 %
[2017-04-30] MEDS: 0.9 % Sodium Chloride 1,000 ML IVC SCH ×3 (05:24→17:59)
[2017-04-30 05:36] LABS: Alanine Aminotransferase 8 Units/L (0-55); Albumin/Globulin Ratio 0.5 (1.1-2.2); Alkaline Phosphatase 84 Units/L (38-126); Aspartate Amino Transferase 9 Units/L (5-34); BUN/Creatinine Ratio 20 (6-26); Blood Urea Nitrogen 14 mg/dL (7-20); Calcium 7.8 mg/dL (8.6-10.8); Carbon Dioxide 21 mEq/L (19-29); Chloride 110 mEq/L (98-109); Globulin 3.6 g/dL (2.4-3.5); Glucose 82 mg/dL (70-99); Magnesium 1.7 mg/dL (1.6-2.6); Osmolality,Calculated 286 (280-300); Potassium 4.2 mEq/L (3.5-4.5); Sodium 138 mEq/L (136-145); Total Protein 5.3 g/dL (6.0-8.3); eGFR For African Americans > 60 (> 60); eGFR For Non-African Americans > 60 (> 60)
[2017-04-30 05:37] LABS: Albumin 1.7 g/dL (3.5-5.0); Bilirubin,Total < 0.2 mg/dL (0.2-1.2); Phosphorous 3.6 mg/dL (2.3-4.7)
[2017-04-30] MEDS: Thiamine (B-1) 100 MG TABLET PO SCH (09:34)
[2017-04-30] MEDS: Levofloxacin 500 MG/100 ML 500 MG/100 ML BAG IVPB SCH (09:44)
--- NOTE | 2017-04-30 14:24 | Internal Med Progress Note ---
Date of Encounter: 04/30/17 Time of Encounter: 14:22 - Assessment and plan (1) Pyelonephritis Current Visit: Yes Status: Acute Assessment and plan: Klebsiella pneumonia infection continue current antibiotic with a stepdown antibiotic on discharge (2) KVNG (acute kidney injury) Current Visit: Yes Status: Acute Assessment and plan: Resolved (3) Calculus of distal right ureter Current Visit: Yes Status: Acute (4) Tobacco abuse Current Visit: Yes Status: Acute (5) Right upper quadrant abdominal pain Current Visit: Yes Status: Acute Assessment and plan: Gallbladder ultrasound reviewed diffuse workup with her sickness. Patient is feeling better. We will try diet and see if the patient can tolerated if patient has recurrent nausea or vomiting or consider HIDA scan and surgery consult. Otherwise patient can follow-up as an outpatient (6) Iron deficiency anemia Current Visit: Yes Status: Acute Assessment and plan: Add iron and vitamin C - Time Spent With Patient Possible discharge in next 24 hour 25 - 35 minutes - Subjective Interval history: Patient denies any nausea or vomiting. Patient stated that her abdominal pain markedly improvement compared to yesterday. Denies any fever or chills - Constitutional Vitals: Temp Pulse Resp BP Pulse Ox 98.2 F 67 18 120/81 97 04/30/17 10:14 04/30/17 10:14 04/30/17 10:14 04/30/17 10:14 04/30/17 10:14 General appearance: Present: A&O X 3 (Dehydrated, dry mucosa) - Head Head exam: Present: atraumatic, normocephalic - Respiratory Respiratory exam: Present: CTAB. Absent: accessory muscle use, rales, rhonchi, wheezes - Cardiovascular Cardiovascular exam: Present: RRR, +S1, +S2. Absent: diastolic murmur, gallop, rubs, systolic murmur - GI/Abdominal GI/Abdominal exam: Present: normal bowel sounds, soft, tenderness (Right upper quadrant), no peritoneal signs. Absent: distended, hernia, hepatomegaly, mass, splenomegaly - Extremities Exam Extremities exam: Present: warm, radial pulses palpable and symmetrical. Absent : calf tenderness, cyanotic, pedal edema - Neurological Exam Neurological exam: Present: CN II-XII intact, no focal deficits - Skin Skin exam: Present: dry, intact Internal Medicine: Result - Labs CBC & Chem 7: 04/30/17 04:58 04/30/17 04:58 Labs: Short CBC 04/30/17 Range/Units 04:58 WBC 9.1 (4.3-11.1) K/mcL Hgb 8.3 L (11.5-15.4) g/dL Hct 27.2 L (35.3-44.9) % Plt Count 334 (140-400) K/mcL Neutrophils # 6.7 (1.6-8.9) K/mcL BMP 04/30/17 04:58 Sodium 138 Potassium 4.2 Chloride 110 H Carbon Dioxide 21 BUN 14 Creatinine 0.70 Glucose 82 Calcium 7.8 L Liver Function 04/30/17 Range/Units 04:58 Total Bilirubin < 0.2 L (0.2-1.2) mg/dL AST 9 (5-34) Units/L ALT 8 (0-55) Units/L Alkaline Phosphatase 84 (38-126) Units/L Albumin 1.7 L D (3.5-5.0) g/dL - Impressions Impressions Gallbladder Ultrasound 04/30/17 07:15 IMPRESSION: 1. Diffusely thickened gallbladder wall with small amount of pericholecystic fluid and tumefactive sludge. 2. Probable peripancreatic lymph node as described. RECOMMENDATIONS: Consider further evaluation with HIDA scan as clinically warranted. D/ / Adi Harris MD / Adi Harris MD Interpreting Provider: Adi Harris MD - VTE Documentation of Mechanical Device: Intermittent pneumatic compression device Consult Discharge Plan - Plan Referrals: NONE,PCP [Primary Care Provider] -
[2017-04-30] MEDS: cefTRIAXone 1,000 MG in Water for inj. (sterile) 10 ML IVP SCH (18:01)
[2017-04-30] MEDS: Nicotine 21 MG PATCH.TD24 TD SCH (18:01)
[2017-04-30] MEDS: Sennosides 8.6 MG TABLET PO SCH ×2 (18:12→22:52)
[2017-04-30] MEDS: Ascorbic Acid 500 MG TABLET PO SCH (18:22)
[2017-05-01] MEDS: 0.9 % Sodium Chloride 1,000 ML IVC SCH (02:05)
[2017-05-01 05:32] LABS: Basophils % 0.4 %; Eosinophils # 0.1 K/mcL (0.0-0.6); Eosinophils % 0.6 %; Hematocrit 28.8 % (35.3-44.9); Hemoglobin 8.9 g/dL (11.5-15.4); Immature Granulocytes % 1.6 % (0-4); Lymphocytes # 2.4 K/mcL (0.6-4.6); Lymphocytes % 30.4 %; Mean Corpuscular HGB Conc 30.9 g/dL (31.6-35.5); Mean Corpuscular Hemoglobin 23.9 pg (28.0-33.3); Mean Corpuscular Volume 77.4 fL (83.0-100.0); Monocytes # 0.7 K/mcL (0.0-1.3); Neutrophils # 4.6 K/mcL (1.6-8.9); Nucleated Red Blood Cells 0.3 /100 WBC (0); Platelet Count 408 K/mcL (140-400); Red Blood Count 3.72 M/mcL (3.82-4.97); Red Cell Distribution Width 16.6 % (11.5-14.5)
[2017-05-01 05:37] LABS: BUN/Creatinine Ratio 12 (6-26); Blood Urea Nitrogen 9 mg/dL (7-20); Calcium 7.9 mg/dL (8.6-10.8); Carbon Dioxide 23 mEq/L (19-29); Chloride 108 mEq/L (98-109); Glucose 75 mg/dL (70-99); Osmolality,Calculated 283 (280-300); Phosphorous 3.6 mg/dL (2.3-4.7); Potassium 4.1 mEq/L (3.5-4.5); Sodium 138 mEq/L (136-145); eGFR For African Americans > 60 (> 60); eGFR For Non-African Americans > 60 (> 60)
[2017-05-01] MEDS: Sennosides 8.6 MG TABLET PO SCH (07:38)
[2017-05-01] MEDS: Levofloxacin 500 MG/100 ML 500 MG/100 ML BAG IVPB SCH (07:38)
[2017-05-01] MEDS: Thiamine (B-1) 100 MG TABLET PO SCH (07:38)
[2017-05-01] MEDS: Ascorbic Acid 500 MG TABLET PO SCH (07:38)
--- NOTE | 2017-05-01 08:45 | Urology Progress Note ---
Date of Encounter: 05/01/17 Time of Encounter: 08:43 - Assessment and Plan (1) Calculus of distal right ureter Current Visit: Yes Status: Acute Assessment and plan: I will arrange for a right ureteroscopy, laser lithotripsy, and stent placement as an outpatient. (2) Sepsis Current Visit: Yes Status: Acute Assessment and plan: Her infection is improving. Transition to oral antibiotic upon discharge. Qualifiers: Sepsis type: sepsis due to unspecified organism Qualified Code(s): A41.9 - Sepsis, unspecified organism Progress Note Narrative: Postop day #3 status post cystoscopy and right ureteral stent placement. She is doing well. She has been afebrile. Klebsiella was growing out of her urine. Objective Initial Vital Signs Temp Pulse Resp BP Pulse Ox 101.3 F H 128 20 99/54 96 04/28/17 00:13 04/28/17 00:13 04/28/17 00:13 04/28/17 00:13 04/28/17 00:13 - General physical appearance Present: well developed, well nourished, no distress - Respiratory Present: normal respiratory effort - Abdomen Present: soft - Labs 05/01/17 04:43 05/01/17 04:43 Diabetes panel 05/01/17 Range/Units 04:43 Sodium 138 (136-145) mEq/L Potassium 4.1 (3.5-4.5) mEq/L Chloride 108 (98-109) mEq/L Carbon Dioxide 23 (19-29) mEq/L BUN 9 (7-20) mg/dL Creatinine 0.78 (0.57-1.11) mg/dL Glucose 75 (70-99) mg/dL Calcium 7.9 L (8.6-10.8) mg/dL Calcium panel 05/01/17 Range/Units 04:43 Calcium 7.9 L (8.6-10.8) mg/dL Phosphorus 3.6 (2.3-4.7) mg/dL Pituitary panel 05/01/17 Range/Units 04:43 Sodium 138 (136-145) mEq/L Potassium 4.1 (3.5-4.5) mEq/L Chloride 108 (98-109) mEq/L Carbon Dioxide 23 (19-29) mEq/L BUN 9 (7-20) mg/dL Creatinine 0.78 (0.57-1.11) mg/dL Glucose 75 (70-99) mg/dL Calcium 7.9 L (8.6-10.8) mg/dL Adrenal panel 05/01/17 Range/Units 04:43 Sodium 138 (136-145) mEq/L Potassium 4.1 (3.5-4.5) mEq/L Chloride 108 (98-109) mEq/L Carbon Dioxide 23 (19-29) mEq/L BUN 9 (7-20) mg/dL Creatinine 0.78 (0.57-1.11) mg/dL Glucose 75 (70-99) mg/dL Calcium 7.9 L (8.6-10.8) mg/dL - VTE Documentation of Mechanical Device: Intermittent pneumatic compression device Consult Discharge Plan - Plan Referrals: NONE,PCP [Primary Care Provider] -
--- NOTE | 2017-05-01 11:08 | Discharge Summary ---
Date of Encounter: 05/01/17 Time of Encounter: 13:00 - Discharge Diagnosis (1) Pyelonephritis Priority: Primary Status: Acute (2) KVNG (acute kidney injury) Priority: Primary Status: Acute (3) Calculus of distal right ureter Priority: Primary Status: Acute (4) Tobacco abuse Priority: Secondary Status: Acute (5) Right upper quadrant abdominal pain Priority: Secondary Status: Acute (6) Iron deficiency anemia Priority: Secondary Status: Acute Qualifiers: Iron deficiency anemia type: unspecified iron deficiency Qualified Code(s) : D50.9 - Iron deficiency anemia, unspecified - Discharge Medications Prescriptions: Acetaminophen [Tylenol] 650 mg PO Q6HR PRN #90 tablet PRN Reason: Mild Pain (1-3) Amoxicillin/Clavulanate [Augmentin] 875 mg PO BIDWM #24 tablet Ascorbic Acid [Vitamin C] 500 mg PO BID #180 tablet Docusate [Colace] 100 mg PO BID #180 capsule Ferrous Sulfate 325 mg PO BIDWM #180 tablet Folic Acid 1 mg PO DAILY #90 tablet Lactobacillus [Culturelle] 1 each PO BID #60 cap.sprink Nicotine Patch [Nicoderm] 21 mg TD Q24H #30 patch.td24 Thiamine (B-1) [Vitamin B-1] 100 mg PO DAILY #90 tablet Home Medications: Buprenorphine HCl [Subutex] 8 mg SL DAILY 04/28/17 [History] Acetaminophen [Tylenol] 650 mg PO Q6HR PRN #90 tablet 05/01/17 [Rx] Amoxicillin/Clavulanate [Augmentin] 875 mg PO BIDWM #24 tablet 05/01/17 [Rx] Ascorbic Acid [Vitamin C] 500 mg PO BID #180 tablet 05/01/17 [Rx] Docusate [Colace] 100 mg PO BID #180 capsule 05/01/17 [Rx] Ferrous Sulfate 325 mg PO BIDWM #180 tablet 05/01/17 [Rx] Folic Acid 1 mg PO DAILY #90 tablet 05/01/17 [Rx] Lactobacillus [Culturelle] 1 each PO BID #60 cap.sprink 05/01/17 [Rx] Nicotine Patch [Nicoderm] 21 mg TD Q24H #30 patch.td24 05/01/17 [Rx] Omeprazole [PriLOSEC] 20 mg PO DAILY@0630 capsule. 05/01/17 [Rx] Thiamine (B-1) [Vitamin B-1] 100 mg PO DAILY #90 tablet 05/01/17 [Rx] Allergies/Adverse Reactions: 3 Allergy/AdvReac Type Severity Reaction Status Date / Time No Known Allergies Allergy Verified 04/04/17 19:33 Procedures/tests Complete & Pending: Procedures Performed prior 72 hours Category Date Time Status US gall bladder [US] Stat Exams 04/30/17 07:15 Completed Date of admission: 04/28/17 02:13 Primary care physician: PCP NONE Consults: Urology Discharging clinician: Magaly Brenner Anticipated date of discharge: 05/01/17 - Patient Status Disposition: Home, Self-Care Condition: Good Functional capacity at discharge: independent ambulation Overall status at discharge: patient is progressing back to baseline - Ambulatory Orders Ambulatory Orders: [facility] hepatobiliary w drug [NM] Time Frame: 1 Week, Facility: [facility], Location: Hospitalist - Discharge Instructions Follow Up With: Geoffrey Leger MD [Partnered Physician] - (Web request sent on 05/01.) NONE,PCP [Primary Care Provider] - (Follow up with urology and surgery in 1-2 weeks Dollow up with family doctor in one week ) - Diet and Activity Activity: resume usual activities as tolerated Diet: low fat, low cholesterol Hospital course: 37-year-old female recently seen in the hospital for urinary tract infection. Patient came with complain of dysuria severe right flank pain or right lower quadrant pain associated with fever of 101.3 white blood cell count is 13.1 with 10% of bands. Sodium is 132 her creatinine has increased from her baseline of 0.78 up to 1.4. Patient looks dry. UA shows too numerous to count white blood cells in the CT scan of the abdomen shows a right 10 mm obstructing stone causing severe hydroureter and right perinephric stranding concerning for possible pyelonephritis. Urology has urgently been consulted. The patient became hypotensive in the 90s, blood pressure is maintaining at the moment. Severe sepsis secondary to right pyelonephritis/obstructing stone Urgent urology consult, the patient is going for urgent stent placement . Patient had right ureteral stent placement, urine culture grew Klebsiella which was sensitive to Augmentin. Patient was complaining of right upper quadrant tenderness and pain. Patient had gallbladder ultrasound which show thickening of gallbladder, ffusely thickened gallbladder wall with small amount of pericholecystic. Discussed with patient about further testing. Patient stated she is feeling back to her normal. She wanted to eat. Was thought patient on liquid diet advance as tolerated. Patient tolerated her meals. Discussed with patient with her symptom and he had history of intolerance to fatty food. Discussed with patient to follow-up with surgery with HIDA scan. Patient agreed to have HIDA scan to be done as an outpatient follow-up with surgery team. Patient discharged home in stable condition. Patient was given prescription for 12 day oral antibiotic. She received today here in the hospital. Patient had iron deficiency anemia. Patient was given prescription for iron as well as vitamin C. Patient needs further evaluation as an outpatient for iron deficiency anemia. No evidence of black stool or blood in stool. Need to have close monitoring of her H&H. No evidence of abuse noted on patient visitation. Good family support - Time Spent with Patient Total time spent providing and/or coordinating discharge services: - Constitutional Vitals: Temp Pulse Resp BP Pulse Ox 99.3 F 80 17 109/69 95 05/01/17 07:19 05/01/17 07:19 05/01/17 07:19 05/01/17 07:19 05/01/17 07:19 General appearance: Present: A&O X 3 (Dehydrated, dry mucosa) - VTE Documentation of Mechanical Device: Intermittent pneumatic compression device
[2017-05-01 11:32] VITALS: BP 115/73
== END 2017-05-01 12:26 | disposition home or self-care (01) | DRG 720 ==
LOC: EMEROO 00:11 → 3ANU 00:11
PROVIDERS: ADMIT Internal Medicine; ATTEND Internal Medicine